=== PATIENT | male | born 1950 | race Caucasian/White ===

== ENCOUNTER 2018-06-13 16:25 | Emergency (ER) | payer OTHER, MEDICARE ==
--- NOTE | 2018-06-13 17:18 | EDPHY ---
H & P Time Seen by Provider: 06/13/18 16:45 HPI/ROS: CHIEF COMPLAINT: Left middle finger injury HISTORY OF PRESENT ILLNESS: Patient is a 67-year-old male who presents to the emergency department with the left middle finger injury last Wednesday. The jammed his finger while putting sheets on the bed. He now notices a bend at his DI P joint. He is unable to fully straighten his finger. No numbness or tingling. No other injury. No previous finger injury. REVIEW OF SYSTEMS: Negative Past Medical/Surgical History: [place] me a, GERD, cardiac disease Past surgical history: Cardiac stents Social history: The patient works as a middle school teacher Smoking Status: Former smoker Physical Exam: Vitals noted General Appearance: Alert and no distress. Head: Pupils equal. Normal. Respiratory: No respiratory distress. Cardiac: regular rate and rhythm. Extremities: Patient has mild swelling at his left DI P. There is mild tenderness to palpation. He is unable to fully straighten his DI P joint. He is able to flex his DI P. Brisk capillary refill . Skin: No rashes or lesions. Neuro: Alert. Normal mood and affect. Constitutional: Initial Vital Signs Temperature (C) 36.6 C 06/13/18 16:36 Heart Rate 56 L 06/13/18 16:36 Respiratory Rate 17 06/13/18 16:36 Blood Pressure 127/78 H 06/13/18 16:36 O2 Sat (%) 96 06/13/18 16:36 O2 Delivery Mode Room Air Allergies/Adverse Reactions: No Known Allergies Allergy (Verified 06/13/18 16:34) Home Medications: Medication Instructions Recorded Atorvastatin Calcium [Lipitor 20 20 mg PO DAILY 01/17/15 mg (*)] [place]oc[place]-3 Fatty Acids [Fish Oil 1000 2,000 mg PO DAILY 01/17/15 mg (*)] Aspirin EC [Aspirin EC 325 mg (*)] 325 mg PO DAILY #30 tab 01/18/15 Metoprolol Tartrate [Lopressor 25 25 mg PO BID #60 tab 01/18/15 mg (*)] Cholecalciferol Vit D3 [Vitamin D] 2,000 units PO DAILY 02/18/15 Herbals/Supplements -Info Only 1 ea PO DAILY 02/18/15 Loratadine [Claritin 10 mg] 10 mg PO DAILY PRN 02/18/15 Multivitamins [Tab-A-Sallie] 1 each PO DAILY 02/18/15 Omeprazole Magnesium [Prilosec Otc] 40 mg PO DAILY 02/18/15 LORAZEPAM 06/13/18 Magnesium 06/13/18 Melatonin 06/13/18 Medical Decision Making - Diagnostics Imaging Results: Imaging Impressions Finger X-Ray 06/13/18 16:54 Impression: Normal. ED Course/Re-evaluation: In the emergency department I discussed possible etiologies with the patient. I answered all his questions. X-ray of his finger was ordered. Finger x-ray: No fracture or dislocation I discussed the results with the patient. I answered all his questions. Patient was placed in a DI P extension splint. He will follow up with Hand surgery. He is given contact information. He was instructed not to take the splint off. Differential Diagnosis: My differential includes but is not limited to fracture, sprain, strain, tendon rupture Departure - Departure Disposition: Home, Routine, Self-Care Clinical Impression: Disorder of tendon in finger Condition: Good Instructions: Tendon Rupture (ED) Additional Instructions: Keep your splint in place. Do not remove. Call the orthopedic surgeon for follow-up. Referrals: Isaac Cabrera [Primary Care Provider] - As per Instructions Austin Mireles MD [Medical Doctor] - 5-7 days, call for appt.
[2018-06-13 17:56] VITALS: BP 120/75
== END 2018-06-13 18:02 | disposition home or self-care (01) ==
DX: S69.92XA Unspecified injury of left wrist, hand and finger(s), initial encounter (principal); Z87.891 Personal history of nicotine dependence; W22.8XXA Striking against or struck by other objects, initial encounter; Y93.E9 Activity, other interior property and clothing maintenance; Y99.9 Unspecified external cause status; Y92.9 Unspecified place or not applicable

== ENCOUNTER → 2018-09-13 | Outpatient (CLI) | payer OTHER, MEDICARE | LOC: BHFA 09:45 | PROVIDERS: ATTEND Internal Medicine Cardiovascular Disease | DX: I25.10 Atherosclerotic heart disease of native coronary artery without angina pectoris (principal) ==

== ENCOUNTER → 2018-09-21 | Outpatient (CLI) | payer OTHER, MEDICARE | LOC: BHFA 09:00 | PROVIDERS: ATTEND Internal Medicine | DX: I25.10 Atherosclerotic heart disease of native coronary artery without angina pectoris (principal) ==

== ENCOUNTER → 2018-10-05 | Outpatient (CLI) | payer OTHER, MEDICARE | LOC: BHFA 09:00 | PROVIDERS: ATTEND Internal Medicine Interventional Cardiology | DX: I25.10 Atherosclerotic heart disease of native coronary artery without angina pectoris (principal); R94.39 Abnormal result of other cardiovascular function study | CPT/HCPCS: 78452; 93017; A9500 ==